=== PATIENT | female | born 1950 | race Caucasian/White ===

== ENCOUNTER 2022-05-26 17:19 | Observation (INO) | payer OTHER ==
[~2022-05-26] VITALS: Ht 157.5 cm; Wt 43.1 kg
[2022-05-26] MEDS ORDERED: BUDESONIDE EC3 MG (17:57)
--- NOTE | 2022-05-26 19:45 | NUR ---
PT ARRIVES TO CCU VIA STRETCHER FROM ED ACCOMPANIED BY . PT ALERT AND ORIENTED, ABLE TO SELF TRANSFER FROM STRETCHER TO BED. NO NEURO DEFECIT NOTED UPON NEURO ASSESSMENT. PT DENIES PAIN AND NAUSEA. DOES REQUEST SNACK TO EAT -PROVIDED. BP REMAINS ELEVATED AT 137/93 BUT BELOW PRN IV MED PARAMETERS. PT ASYMPTOMATIC WITH THIS. IV SITE PATENT X2.
--- NOTE | 2022-05-26 20:18 | NUR ---
RN IN ROOM TO ADMINISTER SCHEDULED MEDICATIONS. PT CONTINUES TO NOT SHOW EXPRESSIVE APHASIA PREVIOUSLY DEMONSTRATED IN ED.
--- NOTE | 2022-05-26 22:22 | NUR ---
RN IN ROOM TO ROUND ON PT - STANDBY ASSIST TO BATHROOM TO VOID, STEADY ON FEET AND WITHOUT DIZZINES. PT DENIES COMPLAINTS URINATING. BACK TO BED WITH CALL LIGHT IN REACH. PT DENIES FURTHER NEEDS.
--- NOTE | 2022-05-27 00:44 | NUR ---
RN IN ROOM TO ASSESS PT - PT WAKES EASILY WITH SOUND, NEURO ASSESSMENT COMPLETE WITH NO DEFECIT NOTED, NO CHANGE. PT DENIES PAIN AND ANY NEEDS AT THIS TIME. BP IMPROVING WITH REST.
--- NOTE | 2022-05-27 00:46 | NUR ---
BP NOTED TO BE LOW ON RN STATION MONITOR, PT LAYING ON SIDE OPPOSITE OF BP CUFF.
--- NOTE | 2022-05-27 01:25 | NUR ---
PT RESTING IN BED, VS REMAIN STABLE.
--- NOTE | 2022-05-27 02:50 | NUR ---
PT RESTING IN BED, VS STABLE.
--- NOTE | 2022-05-27 04:24 | NUR ---
pt resting in bed on right side, rr even and unlabored, vs stable.
--- NOTE | 2022-05-27 06:00 | NUR ---
RN IN ROOM TO ASSESS PT - PT WAKES EASILY WITH TOUCH. BP IMPROVED THROUGH SHIFT, NOW 140'S/80'S AFTER AMBULATION TO BATHROOM. NEURO ASSESSMENT NEGATIVE FOR ANY DEFICIT. PT DENIES PAIN OR ANY ILL FEELING. STEADY ON FEET WITH AMBULATION TO BATHROOM. MRI SCREENING FORM COMPLETE. PT DENIES FURTHER NEEDS, ALL QUESTIONS ANSWERED REGARDING POC.
--- NOTE | 2022-05-27 07:39 | NUR ---
REPORT RECEIVED FROM BABAR DOTSON. PT HAS AND ANOTHER VISITOR IN ROOM, BROUGHT BREAKFAST IN TO PT, DENIES ANY NEEDS AT THIS TIME.
--- NOTE | 2022-05-27 08:28 | NUR ---
COMMERCIAL CONSTRUCTION SUPERINTENDENT IN TO DO ECHOCARDIOGRAM.
--- NOTE | 2022-05-27 10:10 | NUR ---
PT DOWN FOR MRI
--- NOTE | 2022-05-27 10:18 | NUR ---
PT BACK FROM MRI
--- NOTE | 2022-05-27 14:04 | NUR ---
Resting in bed.Reviewed chart and no DC needs noted at this time.Patient has a supportive family.Will reassess plan of care ongoing.
--- NOTE | 2022-05-27 14:26 | NUR ---
PT HAS BEEN NAPPING, RESP EVEN AND UNLABORED, RR 14, SPO2 96% AND HR 70 SINUS RHYTHM.
--- NOTE | 2022-05-27 15:48 | NUR ---
DR SWENSON IN TO TALK WITH PT ABOUT DISCHARGE
[2022-05-27] MEDS ORDERED: MULTI VITAMIN1 EACH PO (15:52)
[2022-05-27] MEDS ORDERED: VITAMIN C500 M1 PO (15:52)
[2022-05-27] MEDS ORDERED: PROLIA60 MG/1 ML SUB-Q (15:52)
[2022-05-27] MEDS ORDERED: MELATONIN3 MG PO (15:53)
[2022-05-27] MEDS ORDERED: VITAMIN D325 MCG PO (15:53)
--- NOTE | 2022-05-27 15:53 | NUR ---
MED REC COMPLETE
[2022-05-27] MEDS ORDERED: LO-DOSE ASPIRIN81 MG PO (15:55)
[2022-05-27] MEDS ORDERED: CLOPIDOGREL75 MG PO (15:55)
[2022-05-27] MEDS ORDERED: AMLODIPINE BES2.5 MG PO (15:56)
--- NOTE | 2022-05-28 13:55 | EKG ---
[facility] [address] [place], [place] [address] Signed Normal sinus rhythm Normal ECG No previous ECGs available Confirmed by WILL SWENSON MD ([id number]) on 05/28/2022 1:55:35 PM Electronically Signed By: WILL SWENSON MD 05/28/22 1355 PATIENT NAME: OSEI RIVERA Electrocardiogram DATE OF : 50 PHYSICIAN: WILL SWENSON MD REPORT #: [id number] REPORT IS CONFIDENTIAL AND NOT TO BE RELEASED WITHOUT AUTHORIZATION
== END 2022-05-27 16:45 | disposition home or self-care (01) ==
LOC: ED 17:19 → CCU 17:21
PROVIDERS: ADMIT Internal Medicine; ATTEND Internal Medicine
DX: G45.9 Transient cerebral ischemic attack, unspecified (principal); I10 Essential (primary) hypertension; M81.0 Age-related osteoporosis without current pathological fracture; K21.9 Gastro-esophageal reflux disease without esophagitis; Z88.2 Allergy status to sulfonamides; Z20.822 Contact with and (suspected) exposure to COVID-19; I16.0 Hypertensive urgency; I16.1 Hypertensive emergency
CPT/HCPCS: 36415; 70450; 70496; 70498; 70551; 71045; 80053; 80061; 83036; 84484; 85025; 85610; 85730; 87502; 93005; 93010; 93306; A9270; C9803; J1650; J7030; Q9967; U0003

== ENCOUNTER 2024-05-10 07:00 | Day surgery (SDC) | payer OTHER ==
--- NOTE | 2024-05-08 12:14 | NUR ---
PHONE CALL TO PT AT THIS TIME, LEFT MESSAGE AT THIS [phone]. AND THEN TRYED [phone] NO ANSWER UNABLE TO LEAVE MESSAGE.
[~2024-05-10] VITALS: Ht 154.9 cm; Wt 51.8 kg
[~2024-05-10 07:00] MED LIST: AMLODIPINE BES2.5 MG PO; BUDESONIDE EC3 MG; CALCIUM 600 MG1 EAC8 PO; CEFAZOLIN SODIUM 2 GM/20 ML SYR IV SCH; CLOPIDOGREL75 MG PO; CRESTOR40 MG NG; IBLOOD GLUCOSE TEST STRIP 1 EA TEST VI PRN; LACTATED RINGER'S 1,000 ML IV SCH; LIDOCAINE HCL 1% 5 ML SDV INJ ONE; LO-DOSE ASPIRIN81 MG PO; LUTEIN20 MG PO; MELATONIN3 MG PO; MULTI VITAMIN1 EACH PO; NORVASC5 MG PO; PROLIA60 MG/1 ML SUB-Q; TRANEXAMIC ACID 2,000 MG in SODIUM CHLORIDE 0.9% 100 ML IV SCH; VITAMIN C500 M1 PO; VITAMIN D325 MCG PO; VITAMIN E100 UNI2 PO; [UNRECOGNIZED DRUG - OTHER] PO
[2024-05-10 07:19] VITALS: BP 131/81
[2024-05-10] MEDS ORDERED: KETOROLAC TROMETHAMINE 30 MG/ML VIAL ONE ×2 (07:29→08:53)
[2024-05-10] MEDS ORDERED: propofoL 200 MG/20 ML VIAL ONE (08:06)
[2024-05-10] MEDS ORDERED: ondansetron HCL 4 MG/2 ML VIAL ONE (08:09)
[2024-05-10] MEDS ORDERED: ACETAMINOPHEN 1,000 MG/100 ML VIAL ONE (08:09)
[2024-05-10] MEDS ORDERED: LIDOCAINE HCL 2% 5 ML SDV ONE (08:09)
[2024-05-10] MEDS ORDERED: fentaNYL citrate 100 MCG/2 ML VIAL ONE (08:35)
[2024-05-10] MEDS ORDERED: ondansetron HCL 4 MG/2 ML VIAL IV PRN (08:45)
[2024-05-10] MEDS ORDERED: PROCHLORPERAZINE EDISYLATE 10 MG/2 ML VIAL IV PRN (08:45)
[2024-05-10] MEDS ORDERED: droPERidol 5 MG/2 ML VIAL IV PRN (08:45)
[2024-05-10] MEDS ORDERED: fentaNYL citrate 50 MCG/ML SDV IV PRN (08:45)
[2024-05-10] MEDS ORDERED: HYDROmorphone HCL 1 MG/ML SYR IV PRN (08:45)
[2024-05-10] MEDS ORDERED: IBLOOD GLUCOSE TEST STRIP 1 EA TEST VI PRN (08:45)
[2024-05-10] MEDS ORDERED: NALOXONE HCL 0.4 MG SYR IV PRN (08:45)
[2024-05-10] MEDS ORDERED: DEXAMETHASONE SOD PHOS 4 MG/ML VIAL ONE (08:51)
[2024-05-10] MEDS ORDERED: ePHEDrine sulfate 50 MG/ML AMP ONE (09:04)
[2024-05-10] MEDS ORDERED: NAPROXEN500 MG PO (09:14)
[2024-05-10] MEDS ORDERED: HYDROCODON-ACE1 EA10 PO (09:15)
[2024-05-10] MEDS ORDERED: HYDROCODONE/ACETA 5/325 TAB PO PRN (09:15)
--- NOTE | 2024-05-10 09:39 | NUR ---
05/10/24 0939 Nina Heard 0990 PT ARRIVED TO PACU ON 6L VIA MASK, PT REACHING FOR HER FACE, PT VERY DROWSY AND UNABLE TO FOLLOW COMMANDS. RESP EVEN AND UNLABORED BUT SHALLOW, DEEP BREATHING ENCOURAGED. 0930 PT HAS HER EYES OPEN LOOKING AROUND, RN REORIENTING PT TO PACU. PT DNEIES PAIN AND NAUSEA. PT ABLE TO MOVE RIGHT LEG AND FOOT AND DENIES NUMBNESS. PLAN OF CARE DISCUSSED.
[2024-05-10 09:50] VITALS: BP 131/77
--- NOTE | 2024-05-10 10:08 | NUR ---
ROSE 0950: PT IS BACK TO DS FROM PACU. SHE AWAKE. HER IS AT THE BEDSIDE. CALL LIGHT WITHIN REACH. WATER ON BEDSIDE TABLE, SHE IS TOLERATING SIPS. DENIES WANTING A SNACK. NO ADDITIONAL NEEDS OR CONCERNS AT THIS TIME.
--- NOTE | 2024-05-10 11:00 | NUR ---
Answered call light. patient requesting to get up and use restroom. Patient ambulated without difficulty to restroom and voided 325ml. patient denies any pain to her right knee and denies any nausea. She states that she feels very well. Patient allowed to get dressed as patient has met all discharge criteria at this time.
[2024-05-10 11:07] VITALS: BP 137/40
--- NOTE | 2024-05-10 11:15 | NUR ---
discharge instructions were reviewed with patient in detail and expressed understanding of all discharge teaching. all questions answered. Her is here to take her home and he is to go get the car and bring it to the front of the hospital. IV removed from left wrist.
--- NOTE | 2024-05-10 11:20 | NUR ---
patient discharged at this time via wheelchair and her is to take her home.
[2024-05-10] MEDS ORDERED: SEVOFLURANE 250 ML BTL INH ONE (14:22)
[2024-05-10] MEDS ORDERED: NAPROXEN 500 MG TAB PO SCH (21:00)
--- NOTE | 2024-05-11 10:11 | OR ---
[facility] [address] [place], [place] [address] Signed DATE OF OPERATION: 05/10/2024 SURGEON: Anna Pérez MD PREOPERATIVE DIAGNOSIS: Medial meniscus tear, right knee. POSTOPERATIVE DIAGNOSIS: Medial meniscus tear, right knee. PROCEDURE PERFORMED: Right knee arthroscopy with partial medial meniscectomy. SENIOR RELATIONSHIP MANAGER: None. ANESTHESIA: General. BLOOD LOSS: Minimal. BRIEF HISTORY: Carmella is a 74-year-old female with pain and locking in her knee. She had instability that bothered her during regular activities. Risks and benefits of operative treatment were discussed with her and she elected to proceed. Once consent was obtained, she was taken to the operating room. After adequate anesthesia, she was placed on the operating room table. The left leg was flexed, abducted and externally rotated on a well-padded leg espinoza. The right was placed in a well-padded proximal thigh leg espinoza with no tourniquet. The leg was then prepped and draped in a standard sterile fashion. The portal sites were injected with 0.25% Marcaine with epinephrine. The standard inferolateral and superolateral portals were made and the scope was introduced in the knee. ARTHROSCOPIC FINDINGS: The patellofemoral joint was intact and well aligned. Medial and lateral gutters were clear. ACL and PCL were intact. The lateral compartment was intact with no significant chondromalacia or meniscus tear. 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 The tibia showed grade 1 softening. There was a complex tear posteriorly. Electronically Signed By: ANNA PÉREZ MD 05/11/24 1011 PATIENT NAME: KAMRON RIVERA OPERATIVE REPORT DATE OF : 50 REPORT #: [id number] PHYSICIAN: ANNA PÉREZ MD PCP: LETICIA SHETTY MD REPORT IS CONFIDENTIAL AND NOT TO BE RELEASED WITHOUT AUTHORIZATION [facility] [address] [place], [place] [address] Signed DESCRIPTION OF OPERATION: Diagnostic arthroscopy was undertaken as noted above. Standard inferomedial portal was made after localization using a spinal needle. The straight and curved biters were then used to trim the posterior meniscus and debride the posterior capsule. The shaver was then used to smooth the surfaces and feather out the meniscus. Once this was accomplished, all debris was evacuated. The scope was then withdrawn. Portals were closed with 3-0 nylon. The knee was injected with 60 mg of Toradol and the wounds were dressed with Adaptic, ABD, and Arun wrap. She tolerated the procedure well. All sponge, needle, and instrument counts were correct. Anna Pérez MD BA/KENDYL /[id number] Copies: ~ Electronically Signed By: ANNA PÉREZ MD 05/11/24 1011 PATIENT NAME: KAMRON RIVERA OPERATIVE REPORT DATE OF : 50 REPORT #: [id number] PHYSICIAN: ANNA PÉREZ MD PCP: LETICIA SHETTY MD REPORT IS CONFIDENTIAL AND NOT TO BE RELEASED WITHOUT AUTHORIZATION
== END 2024-05-10 11:20 | disposition home or self-care (01) ==
LOC: DS 07:00
PROVIDERS: ATTEND Specialist
PROC: 0SBC4ZZ Excision of Right Knee Joint, Percutaneous Endoscopic Approach (ICD-10-PCS; principal; 2024-05-10 09:00)
DX: S83.231A Complex tear of medial meniscus, current injury, right knee, initial encounter (principal); M94.261 Chondromalacia, right knee; X58.XXXA Exposure to other specified factors, initial encounter
CPT/HCPCS: J0131; J0690; J1100; J1885; J2003; J2405; J2704; J3010; J7121